=== PATIENT | female | born 1980 | race Caucasian/White ===

== ENCOUNTER 2020-12-17 19:12 | Emergency (ER) | payer OTHER ==
[2020-12-17] MEDS ORDERED: ACETAMINOPHEN 500 MG TABLET (FP) PO ONE (19:36)
[2020-12-17 19:37] VITALS: BP 110/71; PULSE 66; TEMP 97
[2020-12-17] MEDS ORDERED: ACETAMINOPHEN 500 MG TABLET (FP) ONE (19:50)
[2020-12-17 20:36] LABS: BASO % 0.4 % (0-2.0); EOS % 2.1 % (0-4.5); HEMATOCRIT 35.6 % (32.4-45.2); HEMOGLOBIN 12.3 GM/dL (10.7-15.3); LYMPH % 29.7 % (8-40); MCHC 34.5 g/dl (32.0-36.0); MEAN CELL VOLUME 89.6 fl (80-96); MEAN PLT VOLUME 6.7 fl (7.5-11.1); MONO % 8.7 % (3.8-10.2); NEUT % 59.1 % (42.8-82.8); PLATELET COUNT 317 10^3/uL (134-434); RBC 3.98 M/mm3 (3.60-5.2); RDW 13.2 % (11.6-15.6); WHITE BLOOD COUNT 8.2 K/mm3 (4.0-10.0)
[2020-12-17 20:39] LABS: EPI CELLS 1 /uL (0-25.1); HYALINE CASTS 0 /uL (0-3.1); PH,URINE 5.5 (5.0-8.0); URINE APPEARANCE CLEAR; URINE BACTERIA 22 /uL (0-1359); URINE BILIRUBIN NEGATIVE (NEGATIVE); URINE COLOR YELLOW; URINE GLUCOSE (UA) NEGATIVE (NEGATIVE); URINE KETONE NEGATIVE (NEGATIVE); URINE LEUK ESTERASE NEGATIVE (NEGATIVE); URINE NITRITE NEGATIVE (NEGATIVE); URINE PROTEIN NEGATIVE (NEGATIVE); URINE RBC 59 /uL (0-23.9); URINE UROBILINOGEN 0.2 mg/dL (0.2-1.0); URINE WBC 2 /uL (0-25.8)
[2020-12-17 20:45] LABS: CALCIUM 8.6 mg/dL (8.5-10.1)
[2020-12-17 20:47] LABS: BLOOD UREA NITROGEN 11.3 mg/dL (7-18)
[2020-12-17 20:49] LABS: CREATININE 0.9 mg/dL (0.55-1.3)
[2020-12-17] MEDS ORDERED: POTASSIUM CHLORIDE TABS 20 MEQ TABLET.ER (FP) PO ONE ×2 (21:17→21:22)
== END 2020-12-17 22:19 | disposition home or self-care (01) ==
LOC: JER 19:12
DX: O03.9 Complete or unspecified spontaneous abortion without complication (principal)
CPT/HCPCS: 36415; 76817-TC; 80048; 81003; 84702; 85025; 86850; 86900; 86901; 87086; 99284-25

== ENCOUNTER 2020-12-18 16:03 | Emergency (ER) | payer OTHER ==
[2020-12-18 16:12] VITALS: BP 95/62; PULSE 92; BMI 30.1
[2020-12-18] MEDS ORDERED: ACETAMINOPHEN 500 MG TABLET (FP) PO ONE (16:22)
[2020-12-18] MEDS ORDERED: ACETAMINOPHEN 500 MG TABLET (FP) ONE (17:13)
[2020-12-18 17:40] LABS: BASO % 0.3 % (0-2.0); EOS % 1.9 % (0-4.5); HEMATOCRIT 36.2 % (32.4-45.2); HEMOGLOBIN 12.6 GM/dL (10.7-15.3); LYMPH % 17.2 % (8-40); MCHC 34.7 g/dl (32.0-36.0); MEAN CELL VOLUME 89.4 fl (80-96); MEAN PLT VOLUME 6.5 fl (7.5-11.1); MONO % 7.7 % (3.8-10.2); NEUT % 72.9 % (42.8-82.8); PLATELET COUNT 299 10^3/uL (134-434); RBC 4.05 M/mm3 (3.60-5.2); RDW 13.1 % (11.6-15.6); WHITE BLOOD COUNT 10.4 K/mm3 (4.0-10.0)
[2020-12-18 18:06] LABS: CALCIUM 8.7 mg/dL (8.5-10.1)
[2020-12-18 18:08] LABS: BLOOD UREA NITROGEN 9.2 mg/dL (7-18)
[2020-12-18 18:11] LABS: CREATININE 0.8 mg/dL (0.55-1.3)
== END 2020-12-18 20:23 | disposition home or self-care (01) ==
LOC: JER 16:03
DX: O03.9 Complete or unspecified spontaneous abortion without complication (principal)
CPT/HCPCS: 36415; 76817-TC; 80048; 84702; 85025; 99284-25

== ENCOUNTER 2020-12-26 18:10 | Emergency (ER) | payer OTHER ==
[2020-12-26 18:21] VITALS: TEMP 97
[2020-12-26] MEDS ORDERED: ONDANSETRON 4 MG/2 ML VIAL IVPUSH ONE (19:51)
[2020-12-26] MEDS ORDERED: ONDANSETRON 4 MG/2 ML VIAL ONE (20:19)
[2020-12-26 20:39] LABS: PH,URINE 6.5 (5.0-8.0); URINE APPEARANCE CLEAR; URINE BILIRUBIN NEGATIVE (NEGATIVE); URINE COLOR YELLOW; URINE GLUCOSE (UA) NEGATIVE (NEGATIVE); URINE KETONE TRACE (NEGATIVE); URINE LEUK ESTERASE NEGATIVE (NEGATIVE); URINE NITRITE NEGATIVE (NEGATIVE); URINE PROTEIN NEGATIVE (NEGATIVE)
[2020-12-26 20:47] LABS: BASO % 0.6 % (0-2.0); EOS % 3.2 % (0-4.5); HEMATOCRIT 35.7 % (32.4-45.2); HEMOGLOBIN 12.5 GM/dL (10.7-15.3); MCH 31.7 pg (25.7-33.7); MEAN CELL VOLUME 90.8 fl (80-96); MEAN PLT VOLUME 6.4 fl (7.5-11.1); MONO % 9.5 % (3.8-10.2); NEUT % 49.7 % (42.8-82.8); PLATELET COUNT 354 10^3/uL (134-434); RBC 3.93 M/mm3 (3.60-5.2); RDW 12.9 % (11.6-15.6); WHITE BLOOD COUNT 7.7 K/mm3 (4.0-10.0)
[2020-12-26 20:54] LABS: INR 0.97 (0.83-1.09); PROTHROMBIN TIME (PATIENT) 11.8 SEC (9.7-13.0)
[2020-12-26 20:56] LABS: ACTIVATED PTT 28.4 SECONDS (25.2-36.5)
[2020-12-26 21:14] LABS: CALCIUM 8.2 mg/dL (8.5-10.1)
[2020-12-26 21:15] LABS: ALBUMIN 3.6 g/dl (3.4-5.0); BLOOD UREA NITROGEN 17.7 mg/dL (7-18)
[2020-12-26 21:18] LABS: CREATININE 0.9 mg/dL (0.55-1.3)
[2020-12-26 21:19] LABS: BILIRUBIN,TOTAL 0.2 mg/dL (0.2-1); TOT PROT 7.2 g/dl (6.4-8.2)
[2020-12-26] MEDS ORDERED: SODIUM CHLORIDE 0.9% 500 ML INFUS.BAG IV ONE (21:25)
[2020-12-26] MEDS ORDERED: ACETAMINOPHEN 325 MG TABLET (FP) PO ONE (22:17)
[2020-12-26 22:32] VITALS: BP 114/76; PULSE 62
== END 2020-12-26 22:32 | disposition home or self-care (01) ==
LOC: JER 18:10
PROC: 3E033GC Introduction of Other Therapeutic Substance into Peripheral Vein, Percutaneous Approach (ICD-10-PCS; principal; 2020-12-26)
DX: O03.9 Complete or unspecified spontaneous abortion without complication (principal); Z3A.00 Weeks of gestation of pregnancy not specified
CPT/HCPCS: 36415; 76817-TC; 80053; 81003; 84702; 85025; 85610; 85730; 86850; 86900; 86901; 87086; 99284-25